=== PATIENT | female | born 1945 | race Caucasian/White ===

== ENCOUNTER 2016-07-10 16:00 | Emergency (ER) | payer SELFPAY ==
[~2016-07-10] VITALS: Ht 160 cm; Wt 72.6 kg
[~2016-07-10 16:00] MED LIST: ATENOLOL50 MG ORAL; HYDROCHLOROTH12.5 M2 ORAL; TRAMADOL HCL50 MG ORAL
[2016-07-10] MEDS ORDERED: LEVOTHYROXINE125 MCG ORAL (16:13)
[2016-07-10] MEDS ORDERED: BENAZEPRIL HCL40 MG ORAL (16:13)
[2016-07-10] MEDS ORDERED: CATAPRES0.2 MG ORAL ×2 (16:13→18:41)
[2016-07-10 16:46] VITALS: BP 194/91
[2016-07-10 16:59] LABS: BASOPHILS % (AUTO) 1.1 % (0.0-2.0); EOSINOPHILS % (AUTO) 2.6 % (0.0-3.0); LYMPHOCYTES % (AUTO) 36.7 % (20.0-45.0); MEAN CORPUSCULAR HEMOGLOBIN 31.3 PG (27.0-31.0); MEAN CORPUSCULAR HGB CONC 34.5 G/DL (32.0-36.0); MEAN CORPUSCULAR VOLUME 91 FL (80-99); MEAN PLATELET VOLUME 6.6 FL (6.5-10.1); MONOCYTES % (AUTO) 4.9 % (1.0-10.0); NEUTROPHILS % (AUTO) 54.6 % (45.0-75.0); PLATELET COUNT 243 K/UL (150-450); RED CELL DISTRIBUTION WIDTH 12.2 % (11.6-14.8)
[2016-07-10 17:18] LABS: ALANINE AMINOTRANSFERASE 28 U/L (3-33); ALBUMIN/GLOBULIN RATIO 1.1 (1.0-2.7); ANION GAP 16 (5-15); ASPARTATE AMINO TRANSFERASE 27 U/L (5-40); CALCIUM 9.1 mg/dL (8.6-10.2); CARBON DIOXIDE 25 mEQ/L (20-30); CHLORIDE 102 mEQ/L (98-107); CREATININE 0.8 mg/dL (0.5-0.9); GLOMERULAR FILTRATION RATE > 60 mL/min (>60); HEMOLYSIS 5; POTASSIUM 3.9 mEQ/L (3.4-4.9); SODIUM 143 mEQ/L (135-145); TOTAL PROTEIN 6.9 g/dL (6.6-8.7)
[2016-07-10 17:23] LABS: TROPONIN I < 0.30 ng/mL (<=0.30)
[2016-07-10 17:39] VITALS: BP 147/68
[2016-07-10] MEDS ORDERED: NORVASC5 MG ORAL (18:23)
[2016-07-10] MEDS ORDERED: HYDROCHLOROTH12.5 MG ORAL (18:23)
[2016-07-10 18:24] LABS: APPEARANCE,URINE CLEAR; KETONES,URINE NEGATIVE (NEGATIVE); LEUKOCYTE ESTERASE ,URINE NEGATIVE (NEGATIVE); NITRITE,URINE NEGATIVE (NEGATIVE); PH,URINE 7 (4.5-8.0); PROTEIN,URINE 3+ (NEGATIVE); UROBILINOGEN,URINE NORMAL MG/DL (0.0-1.0)
[2016-07-10 18:28] LABS: BACTERIA,URINE OCCASIONAL /HPF; SQUAMOUS EPITHELIAL CELL,UR FEW /LPF (NONE/OCC); WBC,URINE 0 /HPF (0 - 2)
[2016-07-10 19:02] VITALS: BP 147/68
--- NOTE | 2016-07-11 10:13 | Diagnostic Imaging Report ---
Indications: Headache and dizziness Technique: Spiral acquisitions obtained through the brain. Angled axial and coronal 5 x 5 mm slices were reconstructed. Total dose length product 1382 mGycm. CTDI vol(s) 70 mGy Comparison: None Findings: There is mild age-related enlargement of ventricles and extra-axial CSF spaces again demonstrated. Old bilateral basal ganglia lacunar infarcts are again demonstrated. No acute hemorrhage or edema. No mass effect or midline shift. 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 Visualized orbits and sinuses are unremarkable. The calvarium is intact. Impression: Chronic and age-related changes, including old bilateral basal ganglia lacunar infarcts. Negative for acute intracranial bleed or mass effect Right-sided mastoid disease again demonstrated. This agrees with the preliminary interpretation provided overnight by Dr. Hall The CT scanner at [facility] is accredited by the [employer] and the scans are performed using protocols designed to limit radiation exposure to as low as reasonably achievable to attain images of sufficient resolution adequate for diagnostic evaluation.
--- NOTE | 2016-07-12 05:14 | Emergency Room Report ---
History of Present Illness General Chief Complaint: Hypertension Source: Patient Present Illness HPI Patient is 70-year-old female presented after increased blood pressure. Patient reported having gradual onset of symptoms with past 2 days. Patient had been taking several medications for blood pressure without improvement. Patient been taking clonidine 0.2 mg 3 times a day. She also been had taking beta susana as well as diuretic which she had run out of. The patient any fever. She reported having a moderate headache. She denied any weakness to her extremities. She denied any vomiting or neck pain. She been urinating normally. Allergies: Coded Allergies: No Known Allergies (Unverified , 05/20/15) Patient History Past Medical History: see triage record Reviewed Nursing Documentation: PMH: Agreed, PSxH: Agreed Nursing Documentation-PMH Past Medical History: No History, Except For Hx Hypertension: Yes Review of Systems All Other Systems: negative except mentioned in HPI Physical Exam Vital Signs Date Time Temp Pulse Resp B/P Pulse Ox O2 Delivery O2 Flow Rate FiO2 07/10/16 16:06 98.1 70 16 194/91 100 Room Air Sp02 EP Interpretation: reviewed, normal General Appearance: normal inspection, well appearing, no apparent distress, alert, GCS 15 Head: atraumatic ENT: normal ENT inspection, hearing grossly normal, normal voice Neck: normal inspection, full range of motion, supple, no bony tend Respiratory: normal inspection, lungs clear, normal breath sounds, no respiratory distress, no retraction, no wheezing Cardiovascular #1: regular rate, rhythm, no edema Gastrointestinal: normal inspection, normal bowel sounds, non tender, soft, no guarding, no hernia Genitourinary: no CVA tenderness Musculoskeletal: normal inspection, back normal, normal range of motion Neurologic: normal inspection, alert, responsive, speech normal Psychiatric: normal inspection, judgement/insight normal, mood/affect normal Skin: normal inspection, normal color, no rash Medical Decision Making Diagnostic Impression: Primary Impression: Hypertension ER Course Patient presented for hypertension. Differential diagnosis included wasn't limited to the hypertensive crisis, medication withdrawal, substance abuse, acute renal failure among others.Because of complexity of patient's case laboratory testing and imaging studies were ordered. A CT of the head read by radiologist showed chronic ischemic white matter changes without evident infarct. EKG interpretation normal sinus rhythm without acute ST or T wave changes. The patient was given medications for her blood pressure with improvement. The patient was advised to followup with her primary care physician for adjustment her blood pressure medications. She was given prescriptions for Norvasc as well as hydrochlorothiazide. The patient is advised to follow up with primary care doctor in 1-2 days. Patient is advised to return if any worsening condition or if any changes in status that are concerning. Laboratory Tests Test 07/10/16 16:46 07/10/16 17:35 White Blood Count 9.0 K/UL (4.8-10.8) Red Blood Count 4.60 M/UL (4.20-5.40) Hemoglobin 14.4 G/DL (12.0-16.0) Hematocrit 41.7 % (37.0-47.0) Mean Corpuscular Volume 91 FL (80-99) Mean Corpuscular Hemoglobin 31.3 PG (27.0-31.0) H Mean Corpuscular Hemoglobin Concent 34.5 G/DL (32.0-36.0) Red Cell Distribution Width 12.2 % (11.6-14.8) Platelet Count 243 K/UL (150-450) Mean Platelet Volume 6.6 FL (6.5-10.1) Neutrophils (%) (Auto) 54.6 % (45.0-75.0) Lymphocytes (%) (Auto) 36.7 % (20.0-45.0) Monocytes (%) (Auto) 4.9 % (1.0-10.0) Eosinophils (%) (Auto) 2.6 % (0.0-3.0) Basophils (%) (Auto) 1.1 % (0.0-2.0) Sodium Level 143 mEQ/L (135-145) Potassium Level 3.9 mEQ/L (3.4-4.9) Chloride Level 102 mEQ/L (98-107) Carbon Dioxide Level 25 mEQ/L (20-30) Anion Gap 16 (5-15) H Blood Urea Nitrogen 9 mg/dL (7-23) Creatinine 0.8 mg/dL (0.5-0.9) Estimate Glomerular Filtration Rate > 60 mL/min (>60) Glucose Level 94 mg/dL (74-106) Calcium Level 9.1 mg/dL (8.6-10.2) Total Bilirubin 0.3 mg/dL (0.0-1.2) Aspartate Amino Transferase (AST) 27 U/L (5-40) Alanine Aminotransferase (ALT) 28 U/L (3-33) Alkaline Phosphatase 67 U/L (35-104) Troponin I < 0.30 ng/mL (<=0.30) Total Protein 6.9 g/dL (6.6-8.7) Albumin 3.7 g/dL (3.5-5.2) Globulin 3.2 g/dL Albumin/Globulin Ratio 1.1 (1.0-2.7) Urine Color Pale yellow Urine Appearance Clear Urine pH 7 (4.5-8.0) Urine Specific [place] 1.005 (1.005-1.035) Urine Protein 3+ (NEGATIVE) H Urine Glucose (UA) Negative (NEGATIVE) Urine Ketones Negative (NEGATIVE) Urine Occult Blood 2+ (NEGATIVE) H Urine Nitrite Negative (NEGATIVE) Urine Bilirubin Negative (NEGATIVE) Urine Urobilinogen Normal MG/DL (0.0-1.0) Urine Leukocyte Esterase Negative (NEGATIVE) Urine RBC 2-4 /HPF (0 - 2) H Urine WBC 0 /HPF (0 - 2) Urine Squamous Epithelial Cells Few /LPF (NONE/OCC) Urine Bacteria Occasional /HPF (NONE) Urine Opiates Screen Negative (NEGATIVE) Urine Barbiturates Screen Negative (NEGATIVE) Phencyclidine (PCP) Screen Negative (NEGATIVE) Urine Amphetamines Screen Positive (NEGATIVE) H Urine Benzodiazepines Screen Positive (NEGATIVE) H Urine Cocaine Screen Negative (NEGATIVE) Urine Marijuana (THC) Screen Negative (NEGATIVE) Last Vital Signs Date Time Temp Pulse Resp B/P Pulse Ox O2 Delivery O2 Flow Rate FiO2 07/10/16 19:02 98.1 79 16 147/68 100 Room Air Status: improved Disposition: HOME, SELF-CARE Condition: Stable Scripts Clonidine Hcl* (CATAPRES*) 0.2 Mg Tablet 0.2 MG ORAL Q8HR, #14 TAB Prov: Nitesh Castaneda 07/10/16 Amlodipine Besylate (Norvasc) 5 Mg Tablet 5 MG ORAL DAILY, #30 TAB Prov: LeonelNitesh 07/10/16 Hydrochlorothiazide* (HYDROCHLOROTHIAZIDE*) 12.5 Mg Tablet 12.5 MG ORAL DAILY, #30 TAB Prov: Nitesh Castaneda 07/10/16 Referrals: NOT CHOSEN IPA/MD,REFERRING (PCP) Patient Instructions: Hypertension Nitesh Castaneda Jul 12, 2016 05:14
--- NOTE | 2016-07-14 22:27 | Cardiology Report ---
APPROVED REPORT EKG Measurement Heart [id number] Normal sinus rhythm Nonspecific T wave abnormality Abnormal ECG
== END 2016-07-10 19:02 | disposition home or self-care (01) ==
LOC: EMR 17:40
DX: I10 Essential (primary) hypertension (principal); R51 Headache
CPT/HCPCS: 36415; 70450; 80053; 80300; 81003; 84484; 85025; 93005; 99284

== ENCOUNTER 2018-09-16 22:10 | Emergency (ER) | payer SELFPAY ==
[~2018-09-16] VITALS: Ht 162.6 cm; Wt 72.6 kg
[~2018-09-16 22:10] MED LIST changes: +BENAZEPRIL HCL40 MG ORAL; +CATAPRES0.2 MG ORAL; +HYDROCHLOROTH12.5 MG ORAL; +LEVOTHYROXINE125 MCG ORAL; +NORVASC5 MG ORAL
[2018-09-16] MEDS ORDERED: LOSARTAN POTASS25 MG ORAL (22:18)
[2018-09-16 22:29] VITALS: BP 166/78
--- NOTE | 2018-09-16 22:33 | NUR ---
ER Nurse Note: Pt came from home c/o high blood pressure. Pt stated she has hx of HTN and is on medication. Pt switched primary care physican recently because "that dr was not helping me"; pt also stated she took 4 pills of her BP meds but does not know the name. Pt BP 162/77 at bedside. Urine provided; ERMD at pt side; will continue to [facility].
--- NOTE | 2018-09-16 22:44 | Emergency Room Report ---
History of Present Illness General Chief Complaint: Headache Source: Patient Present Illness HPI Patient is a 72-year-old female who presented after waxing waning headache. Patient reports having recently had her blood pressure medications changed. She reports having moderate headache intermittently for several days. Patient reports of increased stress due to her being placed in a snf. She reports being a smoker smoking 2 cigarettes/day. She was having prior history of COPD. Patient reports having generalized body pain. She denies any fever. She reports having no visual changes. Allergies: Coded Allergies: No Known Allergies (Unverified , 05/20/15) Patient History Last Menstrual Period: n/a Reviewed Nursing Documentation: PMH: Agreed; PSxH: Agreed Nursing Documentation-PMH Past Medical History: No History, Except For Hx Hypertension: Yes Hx COPD: Yes Review of Systems All Other Systems: negative except mentioned in HPI Physical Exam Vital Signs Date Time Temp Pulse Resp B/P (MAP) Pulse Ox O2 Delivery O2 Flow Rate FiO2 09/16/18 22:13 99.0 91 18 166/78 (107) 88 Room Air Sp02 EP Interpretation: reviewed, normal General Appearance: normal inspection, well appearing, no apparent distress, alert, GCS 15 Head: atraumatic ENT: normal ENT inspection, hearing grossly normal, normal voice Neck: normal inspection, full range of motion, supple, no bony tend Respiratory: normal inspection, lungs clear, normal breath sounds, no respiratory distress, no retraction, no wheezing Cardiovascular #1: regular rate, rhythm, no edema Gastrointestinal: normal inspection, normal bowel sounds, non tender, soft, no guarding, no hernia Genitourinary: no CVA tenderness Musculoskeletal: normal inspection, back normal, normal range of motion Neurologic: normal inspection, alert, oriented x3, responsive, speech normal Psychiatric: normal inspection, judgement/insight normal, mood/affect normal Skin: normal inspection, normal color, no rash Medical Decision Making Diagnostic Impression: Primary Impression: Hypertension ER Course Patient presented for blood pressure elevation. Differential diagnosis include was not limited to intracranial hemorrhage, movement hypertension, substance abuse among others. Patient has a benign exam and does not appear to require any further imaging or laboratory testing at this time. Patient noted to be hypertensive with a minimally elevated blood pressure. Patient noted to have a systolic blood pressure of 160. She does not appear to be in any acute distress. Patient was seen and examined and was noted to have no evidence of acute neurologic deficit. She was noted to be speaking normally and have good mental status. Patient was offered CT imaging which she refused. Patient requested refills of her narcotic pain medication as well as Valium. I stated that this should notify the patient that this is something that she should see her primary care physician to have done. Patient does not appear to any evidence of withdrawal at this time. Patient became angry and decided to leave immediately after being told that she would not be given narcotics or Valium. Last Vital Signs Date Time Temp Pulse Resp B/P (MAP) Pulse Ox O2 Delivery O2 Flow Rate FiO2 09/16/18 22:29 99.0 87 18 166/78 88 Room Air Status: improved Disposition: HOME, SELF-CARE Condition: Stable Nitesh Castaneda MD Sep 16, 2018 22:44
[2018-09-16 22:45] VITALS: BP 162/77
--- NOTE | 2018-09-16 22:45 | NUR ---
ER Nurse Note: Pt decided to leave againist medical advice after talking to Dr. Castaneda. Pt was demanding, agitated, arugmentative. Pt asked for prescriptions of Valium and Tramadol. Pt a&ox4, VSS, no signs of distress. Pt refused to sign AMA form; stated "I don't like this hospital and the doctor is a quack". Pt left with steady gait; left with all belongings.
== END 2018-09-16 22:50 | disposition left against medical advice (07) ==
LOC: EMR 22:46
DX: I10 Essential (primary) hypertension (principal); F17.210 Nicotine dependence, cigarettes, uncomplicated; J44.9 Chronic obstructive pulmonary disease, unspecified
CPT/HCPCS: 99282

== ENCOUNTER 2020-02-26 12:06 | Emergency (ER) | payer SELFPAY ==
[~2020-02-26] VITALS: Ht 160 cm; Wt 69.9 kg
[~2020-02-26 12:06] MED LIST changes: +LOSARTAN POTASS25 MG ORAL
[2020-02-26 12:40] VITALS: BP 134/71
--- NOTE | 2020-02-26 12:45 | NUR ---
ED Nurse Note: Pt ambulated to ED from home d/t generalized body weakness with body malaise and fever. Per pt, her got recently tested positive for covid and was [place] [facility] [place] Pt was placed on bed and gown; hooked to monitor car operator, VSS, breathing even and unlabored, satting at 96-97% on RA, 99.8F temp at triage. Will continue to monitor pt, doors kept closed at all times.
--- NOTE | 2020-02-26 12:54 | Emergency Room Report ---
History of Present Illness General Chief Complaint: Flu Like Symptoms Present Illness HPI 74-year-old female presents to the emergency department complaining of 8 out of 10 severity body aches, fevers, chills, vomiting, diarrhea and headaches x1 week. Patient denies blood in the vomit or stool. She denies black tarry stools. Patient states that she did not vomit today. Patient does report 2 loose bowel movements. Patient also reports that her is currently hospitalized for COVID-19 and he had similar symptoms. She denies chest pain, shortness of breath or productive cough. Patient does report history of COPD and is a current smoker. Patient reports history of high blood pressure and hypothyroid. She denies recent travel. She denies rashes. She denies swelling of the lower extremities. She denies dizziness, syncope or visual changes. Patient does report severe x1 week as well. (Orin Asher) Allergies: Coded Allergies: No Known Allergies (Unverified , 05/20/15) COVID-19 Screening Contact w/high risk pt: Yes Experienced COVID-19 symptoms?: Yes COVID-19 Testing performed REPATCHER: No (Orin Asher) Patient History Past Medical History: see triage record Past Surgical History: none Pertinent Family History: none Now: No Reviewed Nursing Documentation: PMH: Agreed; PSxH: Agreed (Orin Asher) Nursing Documentation-PMH Hx Hypertension: Yes Hx COPD: Yes (Orin Asher) Review of Systems All Other Systems: negative except mentioned in HPI (Orin Asher) Physical Exam Vital Signs Date Time Temp Pulse Resp B/P (MAP) Pulse Ox O2 Delivery O2 Flow Rate FiO2 02/26/20 12:29 99.5 87 22 134/71 (92) 91 Room Air Sp02 EP Interpretation: reviewed, normal General Appearance: alert, GCS 15, non-toxic, mild distress Head: normocephalic, atraumatic Eyes: bilateral eye normal inspection, bilateral eye PERRL ENT: hearing grossly normal, normal pharynx, normal voice Neck: full range of motion, no meningismus, no bony tend Respiratory: chest non-tender, lungs clear, normal breath sounds, speaking full sentences Cardiovascular #1: regular rate, rhythm, no edema, normal capillary refill Gastrointestinal: normal bowel sounds, non tender, soft Musculoskeletal: back normal, normal range of motion, gait/station normal, non- tender Neurologic: alert, motor strength/tone normal, oriented x3, sensory intact, responsive, speech normal Psychiatric: judgement/insight normal Skin: no rash, normal color Lymphatic: no adenopathy (Orin Asher) Medical Decision Making PA Attestation Dr. Tellez is my supervising Physician whom patient management has been di scussed with. (Orin Asher) PA Attestation I participate in the care of this patient along with MICHEL Elena Briefly, 74-year-old female with a history of smoking, COPD, hypertension presenting for flulike symptoms 1 week including vomiting and diarrhea. She has tested positive for COVID-19 but no obvious infiltrate on x-ray. Labs are largely within urine normal limits. Urinalysis is pending. Her is hospitalized with COVID-19 as well because of her global weakness, diarrhea and vomiting is unable to care for herself. She will require medical admission. Dr. Law is panel physician has accepted her to his service. (Lopez Tellez MD) Diagnostic Impression: Primary Impression: COVID-19 Additional Impressions: Generalized weakness Vomiting and diarrhea ER Course 74-year-old female presents to the emergency department complaining of 8 out of 10 severity body aches, fevers, chills, vomiting, diarrhea and headaches x1 week. Patient denies blood in the vomit or stool. She denies black tarry stools. Patient states that she did not vomit today. Patient does report 2 loose bowel movements. Patient also reports that her is currently hospitalized for COVID-19 and he had similar symptoms. She denies chest pain, shortness of breath or productive cough. Patient does report history of COPD and is a current smoker. Patient reports history of high blood pressure and hypothyroid. She denies recent travel. She denies rashes. She denies swelling of the lower extremities. She denies dizziness, syncope or visual changes. Patient does report severe x1 week as well. Ddx considered but are not limited to : MS, MG, [place], HI, drug intoxication, hypovolemia, bacterial or viral infection, ETOH, CVA/TIA, NMS, CHF, Cardiac outflow obstruction, QT-prolongation, Brugada, COVID-19, or Anemia just to name a few. Vital signs: are WNL, pt. is afebrile H&PE are most consistent with nontoxic patient in no acute distress not currently vomiting. No signs of respiratory distress and oxygenating well on room air. No evidence of acute abdomen on exam. Not currently vomiting ORDERS: - Rapid COVID: Positive -CBC: WNL -CMP: WNL -Lipase: WNL - Troponin: 0.00 D-Dimer elevated : 1.32 ( c/w covid elevation, pt. without respiratory comp laints or cp) -CK: WNL -CK:MB: WNL -PT/PTT: WNL -Lactic Acid: WNL - Blood Cultures: Pending -BNP: WNL -CRP: 3.7 * elevated -Ferritin: WNL -UA: Most indicative of contamination: presence of equal amounts of bacteria and squamous cells, no elevation in inflammatory markers, nitrite negative. ED INTERVENTIONS: -1liter NS Bolus -ordered Zofran but pt. declines as she is not vomiting today. - Lovenox 40 units Sub Q - per inpatient /ED Covid-19 protocol -10mg Dexamethasone IV Initially was considering admission for generalized weakness and 1 week of vomiting. Patient was going to be admitted to Dr. Law. Dr. Law hospitalist came and evaluated the patient. At that time all labs were back as well. They were for the most part unremarkable/normal and were consistent with lab findings in the setting of COVID-19 infection. Again patient was evaluated to be nontoxic in appearance in no acute distress no respiratory distress and oxygenating consistently between 95 to 100% saturation on room air. DISCHARGE: At this time pt. is stable for d/c to home. Will provide printed patient care instructions, and any necessary prescriptions. Care plan and follow up instructions have been discussed with the patient prior to discharge. This patient was evaluated in the context of the global COVID-19 pandemic, which necessitated consideration that the patient might be at risk for infection with the SARS-COV-2 virus that causes COVID-19. Institutional protocols and algorithms that pertaining to the evaluation of patients at risk for COVID-19 are in a state of rapid change based on information released by multiple regulatory bodies including the CDC and federal and state organizations. These policies and algorithms were followed during the patient's care in the emergency department. Labs Test 02/26/20 12:50 02/26/20 13:50 02/26/20 14:05 Sodium Level 138 MMOL/L (136-145) Potassium Level 4.4 MMOL/L (3.5-5.1) Chloride Level 101 MMOL/L (98-107) Carbon Dioxide Level 29 MMOL/L (21-32) Anion Gap 8 mmol/L (5-15) Blood Urea Nitrogen 11 mg/dL (7-18) Creatinine 1.0 MG/DL (0.55-1.30) Estimat Glomerular Filtration Rate 54.2 mL/min (>60) Glucose Level 95 MG/DL (74-106) Calcium Level 8.5 MG/DL (8.5-10.1) Total Bilirubin 0.2 MG/DL (0.2-1.0) Aspartate Amino Transf (AST/SGOT) 33 U/L (15-37) Alanine Aminotransferase (ALT/SGPT) 34 U/L (12-78) Alkaline Phosphatase 91 U/L (46-116) Total Creatine Kinase 101 U/L (26-308) Troponin I 0.000 ng/mL (0.000-0.056) Total Protein 7.6 G/DL (6.4-8.2) Albumin 3.2 G/DL (3.4-5.0) Globulin 4.4 g/dL Albumin/Globulin Ratio 0.7 (1.0-2.7) Lipase 64 U/L (73-393) White Blood Count 6.5 K/UL (4.8-10.8) Red Blood Count 4.61 M/UL (4.20-5.40) Hemoglobin 13.9 G/DL (12.0-16.0) Hematocrit 43.2 % (37.0-47.0) Mean Corpuscular Volume 94 FL (80-99) Mean Corpuscular Hemoglobin 30.2 PG (27.0-31.0) Mean Corpuscular Hemoglobin Concent 32.3 G/DL (32.0-36.0) Red Cell Distribution Width 14.2 % (11.6-14.8) Platelet Count 183 K/UL (150-450) Mean Platelet Volume 7.7 FL (6.5-10.1) Neutrophils (%) (Auto) 62.7 % (45.0-75.0) Lymphocytes (%) (Auto) 28.2 % (20.0-45.0) Monocytes (%) (Auto) 6.9 % (1.0-10.0) Eosinophils (%) (Auto) 1.7 % (0.0-3.0) Basophils (%) (Auto) 0.5 % (0.0-2.0) Lactic Acid Level 1.20 mmol/L (0.4-2.0) Ferritin 155 NG/ML (8-388) Lactate Dehydrogenase 179 U/L (81-234) Creatine Kinase MB 0.8 NG/ML (0.0-3.6) C-Reactive Protein, Quantitative 3.7 mg/dL (0.00-0.90) Pro-B-Type Natriuretic Peptide 28 pg/mL (0-125) Prothrombin Time 10.7 SEC (9.30-11.50) Prothromb Time International Ratio 1.0 (0.9-1.1) Activated Partial Thromboplast Time 27 SEC (23-33) D-Dimer 1.32 mg/L FEU (0.00-0.49) Urine Color Pale yellow Urine Appearance Clear Urine pH 7 (4.5-8.0) Urine Specific [place] 1.005 (1.005-1.035) Urine Protein 3+ (NEGATIVE) Urine Glucose (UA) Negative (NEGATIVE) Urine Ketones Negative (NEGATIVE) Urine Blood Negative (NEGATIVE) Urine Nitrite Negative (NEGATIVE) Urine Bilirubin Negative (NEGATIVE) Urine Urobilinogen Normal MG/DL (0.0-1.0) Urine Leukocyte Esterase Negative (NEGATIVE) Urine RBC 0-2 /HPF (0 - 2) Urine WBC 0-2 /HPF (0 - 2) Urine Squamous Epithelial Cells Occasional /LPF Urine Bacteria Occasional /HPF (NONE) (Orin Asher) EKG Diagnostic Results Troponin ordered: Yes When was troponin ordered?: Feb 26, 2020 EKG Time: 13:00 Rate: normal - 83 nsr Rhythm: NSR ST Segments: no acute changes ASA given to the pt in ED: No PA Scribe Text This Interpretation was scribed by MICHEL Asher. (Orin Asher) Chest X-Ray Diagnostic Results Chest X-Ray Diagnostic Results : Chest X-Ray Ordered: Yes # of Views/Limited/Complete: 1 View Indication: Shortness of Breath EP Interpretation: Yes MICHEL Xray: Interpretation reviewed, by supervising MD, and agrees with findings. Interpretation: no consolidation, no effusion, no pneumothorax Impression: No acute disease Electronically Signed by: Orin Asher PA-C (Orin Asher) Last Vital Signs Date Time Temp Pulse Resp B/P (MAP) Pulse Ox O2 Delivery O2 Flow Rate FiO2 02/26/20 12:29 99.5 87 22 134/71 (92) 91 Room Air Status: unchanged (Orin Asher) Disposition: HOME, SELF-CARE Condition: Stable Scripts Dicyclomine Hcl* (DICYCLOMINE HCL*) 10 Mg Capsule 10 MG ORAL TID for Diarrhea for 3 Days, #9 CAP Prov: Orin Asher 02/26/20 Ondansetron Odt* (ZOFRAN ODT*) 4 Mg Tab.rapdis 4 MG BC EVERY 6 HOURS PRN for Nausea & Vomiting, #10 TAB 0 Refills Prov: Orin Asher 02/26/20 Acetaminophen* (TYLENOL EXTRA STRENGTH*) 500 Mg Tablet 500 MG ORAL Q6H PRN for Mild Pain/Temp > 100.5, #20 TAB 0 Refills Prov: Orin Asher 02/26/20 Referrals: Niurka Alfaro [facility] Patient Instructions: Food Choices to Help Relieve Diarrhea, Adult, Nausea and Vomiting, Adult, [id number] Additional Instructions: Please review provided instructions on self quarantine at home as well as treatment for your symptoms. Currently there is no specific medication for COVID-19. It has been determined that because your oxygen level is normal as well as all the blood work that was performed in the ED today. You are stable enough to be treated as an outpatient. Take medications as directed. Follow up with a Primary Care Provider in 3-5 days, even if your symptoms jones ve resolved. --Please review list of primary care clinics, if you do not already have a primary care provider Return sooner to ED if new symptoms occur, or current symptoms become worse. - Please note that this Emergency Department Report was dictated using [employer] maker technology software, occasionally this can lead to erroneous entry secondary to interpretation by the dictation equipment. Orin Asher Feb 26, 2020 12:54 Lopez Tellez MD Feb 26, 2020 14:21
[2020-02-26 13:15] LABS: BASOPHILS % (AUTO) 0.5 % (0.0-2.0); EOSINOPHILS % (AUTO) 1.3 % (0.0-3.0); HEMATOCRIT 44.3 % (37.0-47.0); HEMOGLOBIN 14.5 G/DL (12.0-16.0); LYMPHOCYTES % (AUTO) 25.5 % (20.0-45.0); MEAN CORPUSCULAR VOLUME 93 FL (80-99); MONOCYTES % (AUTO) 7.1 % (1.0-10.0); NEUTROPHILS % (AUTO) 65.7 % (45.0-75.0); PLATELET COUNT 187 K/UL (150-450); RED BLOOD COUNT 4.77 M/UL (4.20-5.40); RED CELL DISTRIBUTION WIDTH 14.1 % (11.6-14.8); WHITE BLOOD COUNT 6.5 K/UL (4.8-10.8)
[2020-02-26 13:21] LABS: ANION GAP 8 mmol/L (5-15); BLOOD UREA NITROGEN 11 mg/dL (7-18); CALCIUM 8.5 MG/DL (8.5-10.1); CARBON DIOXIDE 29 MMOL/L (21-32); CHLORIDE 101 MMOL/L (98-107); POTASSIUM 4.4 MMOL/L (3.5-5.1); SODIUM 138 MMOL/L (136-145)
--- NOTE | 2020-02-26 13:23 | Diagnostic Imaging Report ---
Indication: Chest pain Technique: One view of the chest Comparison: 05/20/2015 Findings: Lungs and pleural spaces are clear. The heart size is upper limits normal. Impression: Negative
[2020-02-26 13:26] LABS: ALANINE AMINOTRANSFERASE 34 U/L (12-78); ALBUMIN 3.2 G/DL (3.4-5.0); ALBUMIN/GLOBULIN RATIO 0.7 (1.0-2.7); ALKALINE PHOSPHATASE 91 U/L (46-116); ASPARTATE AMINO TRANSFERASE 33 U/L (15-37); BILIRUBIN,TOTAL 0.2 MG/DL (0.2-1.0); CREATINE KINASE 101 U/L (26-308)
[2020-02-26 14:19] LABS: APPEARANCE,URINE CLEAR; BILIRUBIN, URINE NEGATIVE (NEGATIVE); COLOR,URINE PALE YELLOW; GLUCOSE, URINE (UA) NEGATIVE (NEGATIVE); KETONES,URINE NEGATIVE (NEGATIVE); LEUKOCYTE ESTERASE ,URINE NEGATIVE (NEGATIVE); NITRITE,URINE NEGATIVE (NEGATIVE); PH,URINE 7 (4.5-8.0); PROTEIN,URINE 3+ (NEGATIVE); UROBILINOGEN,URINE NORMAL MG/DL (0.0-1.0)
[2020-02-26 14:37] LABS: CKMB 0.8 NG/ML (0.0-3.6)
[2020-02-26 14:41] LABS: BASOPHILS % (AUTO) 0.5 % (0.0-2.0); EOSINOPHILS % (AUTO) 1.7 % (0.0-3.0); HEMATOCRIT 43.2 % (37.0-47.0); HEMOGLOBIN 13.9 G/DL (12.0-16.0); LYMPHOCYTES % (AUTO) 28.2 % (20.0-45.0); MEAN CORPUSCULAR VOLUME 94 FL (80-99); MONOCYTES % (AUTO) 6.9 % (1.0-10.0); NEUTROPHILS % (AUTO) 62.7 % (45.0-75.0); PLATELET COUNT 183 K/UL (150-450); RED BLOOD COUNT 4.61 M/UL (4.20-5.40); RED CELL DISTRIBUTION WIDTH 14.2 % (11.6-14.8); WHITE BLOOD COUNT 6.5 K/UL (4.8-10.8)
--- NOTE | 2020-02-26 14:57 | NUR ---
ED Nurse Note: telephone report given to dimitris adams for continuity of care.
--- NOTE | 2020-02-26 15:00 | NUR ---
NURSE NOTES: Received report from Marta RN, will wait for pt arrival to the unit
[2020-02-26] MEDS ORDERED: dexAMETHasone 10mg/ml Inj IV ONE (15:15)
[2020-02-26] MEDS ORDERED: Enoxaparin 40mg Inj SUBQ SCH (15:15)
[2020-02-26] MEDS ORDERED: ONDANSETRON ODT4 MG BC (15:48)
[2020-02-26] MEDS ORDERED: TYLENOL EXTRA500 MG ORAL (15:48)
[2020-02-26] MEDS ORDERED: DICYCLOMINE HCL10 MG ORAL (15:48)
[2020-02-26 16:05] VITALS: BP 130/68
--- NOTE | 2020-02-26 16:05 | NUR ---
ER DISCHARGE NOTE: Patient is cleared to be discharged per ERMD, pt is aox4, on room air, with stable vital signs. pt was given dc and prescription instructions, pt was able to verbalize understanding, pt id band and iv site removed without complications. pt is able to ambulate with steady gait. pt took all belongings.
--- NOTE | 2020-02-26 16:45 | History and Physical Report ---
DATE OF ADMISSION: 02/26/2020 CHIEF COMPLAINT/REASON FOR HOSPITALIZATION: The patient is admitted with weakness, nausea, vomiting, diarrhea, low-grade fever, COVID-19 positive. HISTORY OF PRESENT ILLNESS: The patient is sick for about 3 days with some cough, intermittent nausea, vomiting, a couple of episodes of diarrhea, not recurred today. She is found to have COVID-19 positive in the emergency room and felt by the ER physician not stable to go home considering her nausea, vomiting, generalized weakness. The patient is an everyday smoker. PAST MEDICAL HISTORY: Adult-onset diabetes and hypertension. ALLERGIES: None known. MEDICATIONS: Ultram p.r.n., 1 diabetes pill a day, and 2 different blood pressure pills daily, which she cannot name. PAST SURGICAL HISTORY: Partial hysterectomy and appendectomy. REVIEW OF SYSTEMS: HEAD, EYES, EARS, NOSE, AND THROAT,: Vision and hearing are good. ENDOCRINE: No known thyroid disease. She has adult-onset diabetes. PULMONARY: History of smoking, mild dry cough. No distress. CARDIAC: No angina or UT. GASTROINTESTINAL: No GI bleeding or ulcers. Some recent nausea, vomiting as above. GENITOURINARY: No dysuria or hematuria. NEUROLOGIC: No CVA or syncope. PHYSICAL EXAMINATION: VITAL SIGNS: Temperature 99.5, pulse 87, respirations 22, blood pressure 134/71. GENERAL: She is alert and oriented. No distress. Nontoxic. HEAD, EYES, EARS, NOSE, AND THROAT: Sclerae are nonicteric. Ocular motions intact in all directions. Oral mucosa moist. NECK: No lymphadenopathy. LUNGS: Clear. HEART: Regular rhythm. No murmur. ABDOMEN: Soft. No organomegaly. EXTREMITIES: No edema. NEUROLOGIC: She is alert and oriented, without focal findings. IMPRESSION: 1. COVID-19 positive. 2. Nausea, vomiting, diarrhea. 3. Generalized weakness. PLAN: At this time, she is not hypoxic. We will observe her. Give her symptomatic care. Within the next 24 hours, we should be able to make a disposition. Soto Law M.D. DR: SUSAN JOB#: [id number] CC:
== END 2020-02-26 16:05 | disposition home or self-care (01) ==
LOC: EMR 12:52 → 4E 13:50 → UNDOADMIN 13:50 → EDBEDREQ 15:06 → EMR 16:05
DX: U07.1 COVID-19 (principal); R53.1 Weakness; R11.10 Vomiting, unspecified; R19.7 Diarrhea, unspecified; I10 Essential (primary) hypertension; J44.9 Chronic obstructive pulmonary disease, unspecified
CPT/HCPCS: 36415; 71045; 80053; 81003; 82550; 82553; 82728; 83605; 83615; 83690; 83880; 84484; 85025; 85379; 85610; 85730; 86140; 87040; 93005; 96361; 96372; 96374; 96375; 99284; J1650; J2405; J7030; U0002